=== PATIENT | female | born 1950 | race Caucasian/White ===

== ENCOUNTER → 2017-02-06 | Outpatient (CLI) | payer MEDICARE, OTHER ==
[~2017-02-06] MED LIST: ABIL15TA2 PO; AZIT500T2 PO; BENZ100 PO; BIOTCAP PO; CALC600T34 PO; DORZ1SOL2 EACH EYE; FLUT50SP EACH NARE; VITA20002 PO
[2017-02-06 08:18] LABS: AUTOMATED NEUTROPHIL # 1.8 TH/MM3 (1.8-7.7); BASOPHIL % 0.5 % (0.0-2.0); EOSINOPHIL # 0.1 TH/MM3 (0-0.4); EOSINOPHIL % 1.7 % (0.0-4.0); HEMATOCRIT 42.3 % (35.0-46.0); HEMO FLAGS DIFF FINAL; LYMPH % 31.9 % (9.0-44.0); MEAN CELL VOLUME 87.7 FL (80.0-100.0); MEAN CORPUSCULAR HEMOGLOBIN 29.9 PG (27.0-34.0); MEAN CORPUSCULAR HGB CONC 34.1 % (32.0-36.0); NEUT % 56.9 % (16.0-70.0); PLATELET COUNT 172 TH/MM3 (150-450); RED BLOOD COUNT 4.82 MIL/MM3 (4.00-5.30); RED CELL DISTRIBUTION WIDTH 14.2 % (11.6-17.2); WHITE BLOOD COUNT 3.2 TH/MM3 (4.0-11.0)
[2017-02-06 08:59] LABS: ALKALINE PHOSPHATASE 54 U/L (45-117); ALT (GPT) 28 U/L (10-53); ANION GAP 9 MEQ/L (5-15); BICARBONATE 26.7 MEQ/L (21.0-32.0); BLOOD UREA NITROGEN 9 MG/DL (7-18); CHLORIDE 101 MEQ/L (98-107); GLOMERULAR FILTRATION RATE 85 ML/MIN (>89); GLUCOSE,FASTING 87 MG/DL (74-99); SODIUM (NA) 137 MEQ/L (136-145); TOTAL BILIRUBIN ADULT 0.5 MG/DL (0.2-1.0)
[2017-02-06 09:00] LABS: AST (GOT) 24 U/L (15-37); POTASSIUM 3.7 MEQ/L (3.5-5.1)
== END ==
LOC: CLAB 07:56
PROVIDERS: ATTEND Psychiatry & Neurology Psychiatry
DX: F25.1 Schizoaffective disorder, depressive type (principal)
CPT/HCPCS: 36415; 80053; 85025

== ENCOUNTER → 2017-02-08 | Outpatient (CLI) | payer MEDICARE, OTHER ==
[2017-02-08 08:07] LABS: HDL CHOLESTEROL 54.5 MG/DL (40.0-60.0)
== END ==
LOC: CLAB 07:14
PROVIDERS: ATTEND Family Medicine
DX: E78.5 Hyperlipidemia, unspecified (principal)
CPT/HCPCS: 36415; 80061

== ENCOUNTER → 2017-06-14 | Outpatient (CLI) | payer MEDICARE, OTHER ==
[~2017-06-14] MED LIST changes: -AZIT500T2 PO; +BACT800T5 PO; -BENZ100 PO; -BIOTCAP PO; -CALC600T34 PO; +D32000TA; -DORZ1SOL2 EACH EYE; +DORZ2SOL7 EACH EYE; -FLUT50SP EACH NARE; -VITA20002 PO
[2017-06-14 07:47] LABS: AUTOMATED NEUTROPHIL # 2.6 TH/MM3 (1.8-7.7); BASOPHIL % 0.7 % (0.0-2.0); EOSINOPHIL % 1.2 % (0.0-4.0); HEMO FLAGS DIFF FINAL; LYMPH % 29.5 % (9.0-44.0); LYMPHOCYTE # 1.2 TH/MM3 (1.0-4.8); MEAN CELL VOLUME 89.3 FL (80.0-100.0); MEAN CORPUSCULAR HEMOGLOBIN 30.3 PG (27.0-34.0); MEAN CORPUSCULAR HGB CONC 33.9 % (32.0-36.0); MONO % 7.2 % (0.0-8.0); NEUT % 61.4 % (16.0-70.0); PLATELET COUNT 167 TH/MM3 (150-450); RED CELL DISTRIBUTION WIDTH 14.2 % (11.6-17.2); WHITE BLOOD COUNT 4.2 TH/MM3 (4.0-11.0)
[2017-06-14 08:07] LABS: ANION GAP 9 MEQ/L (5-15); AST (GOT) 15 U/L (15-37); BICARBONATE 25.5 MEQ/L (21.0-32.0); BLOOD UREA NITROGEN 8 MG/DL (7-18); CHLORIDE 100 MEQ/L (98-107); GLOMERULAR FILTRATION RATE 82 ML/MIN (>89); GLUCOSE,FASTING 89 MG/DL (74-99); POTASSIUM 3.4 MEQ/L (3.5-5.1); SODIUM (NA) 134 MEQ/L (136-145)
[2017-06-14 08:08] LABS: ALT (GPT) 29 U/L (10-53)
[2017-06-14 08:18] LABS: ALKALINE PHOSPHATASE 61 U/L (45-117); HDL CHOLESTEROL 55.5 MG/DL (40.0-60.0); LDL CHOLESTEROL 107 MG/DL (0-99); TOTAL BILIRUBIN ADULT 0.4 MG/DL (0.2-1.0)
== END ==
LOC: CLAB 07:18
PROVIDERS: ATTEND Family Medicine
DX: M85.80 Other specified disorders of bone density and structure, unspecified site (principal); C53.9 Malignant neoplasm of cervix uteri, unspecified; Z12.39 Encounter for other screening for malignant neoplasm of breast; F32.9 Major depressive disorder, single episode, unspecified; E78.5 Hyperlipidemia, unspecified; Z71.89 Other specified counseling; E55.9 Vitamin D deficiency, unspecified
CPT/HCPCS: 36415; 80053; 80061; 82306; 84443; 85025

== ENCOUNTER → 2017-08-08 | Outpatient (CLI) | payer MEDICARE, OTHER ==
[~2017-08-08] MED LIST changes: -ABIL15TA2 PO; +ABIL15TA3 PO; -D32000TA; +D32000TA PO; +LATA0.002 EACH EYE; +MULT-65 PO
[2017-08-08 15:11] LABS: AUTOMATED NEUTROPHIL # 2.7 TH/MM3 (1.8-7.7); BASOPHIL % 0.7 % (0.0-2.0); EOSINOPHIL # 0.1 TH/MM3 (0-0.4); EOSINOPHIL % 1.1 % (0.0-4.0); HEMATOCRIT 43.5 % (35.0-46.0); LYMPH % 35.1 % (9.0-44.0); LYMPHOCYTE # 1.7 TH/MM3 (1.0-4.8); MEAN CELL VOLUME 89.2 FL (80.0-100.0); MEAN CORPUSCULAR HEMOGLOBIN 30.6 PG (27.0-34.0); MEAN CORPUSCULAR HGB CONC 34.3 % (32.0-36.0); MONO % 7.5 % (0.0-8.0); NEUT % 55.6 % (16.0-70.0); PLATELET COUNT 179 TH/MM3 (150-450); RED BLOOD COUNT 4.87 MIL/MM3 (4.00-5.30); RED CELL DISTRIBUTION WIDTH 14.2 % (11.6-17.2); WHITE BLOOD COUNT 4.9 TH/MM3 (4.0-11.0)
[2017-08-08 15:14] LABS: HEMO FLAGS AUTO DIFF
[2017-08-08 15:24] LABS: APTT (PATIENT) 25.4 SEC (24.3-30.1); PROTHROMBIN TIME - PATIENT 10.6 SEC (9.8-11.6)
[2017-08-08 15:31] LABS: ALKALINE PHOSPHATASE 69 U/L (45-117); ALT (GPT) 38 U/L (10-53); GLOMERULAR FILTRATION RATE 68 ML/MIN (>89); TOTAL BILIRUBIN ADULT 0.4 MG/DL (0.2-1.0)
[2017-08-08 15:34] LABS: ANION GAP 8 MEQ/L (5-15); AST (GOT) 26 U/L (15-37); BICARBONATE 27.3 MEQ/L (21.0-32.0); BLOOD UREA NITROGEN 10 MG/DL (7-18); CHLORIDE 101 MEQ/L (98-107); GLUCOSE,FASTING 78 MG/DL (74-99); POTASSIUM 3.8 MEQ/L (3.5-5.1); SODIUM (NA) 136 MEQ/L (136-145)
[2017-08-08 15:43] LABS: PLATELET ESTIMATE SMEAR NORMAL (NORMAL); PLATELET MORPHOLOGY NORMAL (NORMAL); SCAN/DIFF AUTO DIFF CONFIRMED
--- NOTE | 2017-08-08 16:01 | RADRPT ---
EXAM DATE/TIME: 08/08/2017 15:21 [facility] COMPARISON: No previous studies available for comparison. INDICATIONS : Evaluate for pneumonia, pneumothorax, or communicable disease. Pre-op vaginal exploratory surgery. MEDICAL HISTORY : Right breast, tumor. Left breast, cyst. SURGICAL HISTORY : None. ENCOUNTER: Initial ACUITY: 1 day PAIN SCORE: 0/10 LOCATION: Bilateral chest FINDINGS: The Cqbbik-y-Eypo in satisfactory position. The lungs are clear. The heart is normal in size. There a re degenerative changes within the spine. CONCLUSION: 1. No acute cardiopulmonary findings. Chemo Weber MD on August 08, 2017 at 15:59 Board Certified Radiologist. This report was verified electronically.
--- NOTE | 2017-08-09 16:26 | EKG ---
Date Performed: 08/08/2017 Time Performed: 14:52:44 PTAGE: 66 years EKG: Sinus rhythm LOW QRS VOLTAGE IN PRECORDIAL LEADS BORDERLINE ECG Since PREVIOUS TRACING , no significant change noted PREVIOUS TRACIN02/22/2015 15.34 DOCTOR: Rigo Gutierrez Interpretating Date/Time 08/09/2017 16:24:02
== END ==
LOC: CPRE 14:30
PROVIDERS: ATTEND Obstetrics & Gynecology Gynecologic Oncology
DX: Z01.810 Encounter for preprocedural cardiovascular examination (principal); Z01.811 Encounter for preprocedural respiratory examination; Z01.812 Encounter for preprocedural laboratory examination; C53.9 Malignant neoplasm of cervix uteri, unspecified; R94.31 Abnormal electrocardiogram [ECG] [EKG]
CPT/HCPCS: 36415; 71020; 80053; 85025; 85610; 85730; 93005

== ENCOUNTER → 2017-08-20 | Day surgery (SDC) | payer MEDICARE, OTHER ==
[~2017-08-20] MED LIST changes: +ACETAMINOPHEN 1000 MG/100 ML 100 ML IV ONE; +APREPITANT 40 MG CAP ONE; -BACT800T5 PO; +CHLORHEXIDINE GLUCONATE 2 % 1 PACK (2 CLOTHS) TOPICAL PRN; +DEXAMETHASONE SOD PHOS 4 MG/ML VIAL IV ONE; +DO NOT ADM ANY ANTICOAGULANT DRUGS PRN; +KETOROLAC TROMETHAMINE 30 MG/ML (IVP) VIAL IV PUSH ONE; +KETOROLAC TROMETHAMINE 30 MG/ML (IVP) VIAL ONE; +LACTATED RINGER'S 1000 ML INJ 1,000 ML IV ONE; +LACTATED RINGER'S 1000 ML IV PRN; +LIDOCAINE 1%/EPINEPHrine 1:100,000 SOLN 20 ML VIAL ONE; +LIDOCAINE HCL 1% PF 5 ML SYRINGE OTHER ONE; +METOPROLOL TARTRATE 25 MG TAB PO PRN; +ONDANSETRON HCL 4 MG/2 ML VIAL IV PUSH ONE; +PROPOFOL 200 MG/20 ML AMP IV ONE; +SODIUM CHLORID 0.9% 500 ML IV PRN; +ePHEDrine/NS 25 MG/5 ML SYR IV ONE
[2017-08-20 15:45] VITALS: BP 147/71; PULSE 70; RESP 18; O2SAT 94
--- NOTE | 2017-08-21 10:14 | MP ---
cc: LUTHER PIERRE MD DATE OF SURGERY: 08/20/2017 PREOPERATIVE DIAGNOSIS 1. History of stage II cervical cancer. 2. Prior radiation x2 with previous chemotherapy to address recurrent disease. 3. Persistent and increased PET avid signal in the central pelvis and the region of the cervix. 4. Profound anatomical changes due to radiation. POSTOPERATIVE DIAGNOSIS 1. History of stage II cervical cancer. 2. Prior radiation x2 with previous chemotherapy to address recurrent disease. 3. Persistent and increased PET avid signal in the central pelvis and the region of the cervix. 4. Profound anatomical changes due to radiation. PROCEDURE 1. Examination under anesthesia. 2. Digital dilation of the vaginal canal. 3. Biopsies of the vaginal/cervical area with Cytobrush specimen for cytology. 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 ANESTHESIA Laryngeal mask anesthesia. ESTIMATED BLOOD LOSS 20 cc. HISTORY A 66-year-old female who has a complex treatment history as previously outlined including primary radiation and [place] chemotherapy for initial treatment of a locally advanced cervix cancer. She has been treated with chemotherapy along the course for recurrence and she had a central recurrence a number of years later and was felt to be a candidate for additional radiation and she was treated with additional radiation. She has been followed with clinical follow-up. Pap smears have been normal but the vaginal canal is almost completely obliterated such that reaching the cervix and obtaining a specimen from the cervix has not been possible due to the severe anatomical changes. She has been followed with periodic PET scans that have shown a persistent PET avid signal in the region of the cervix but it had been stable. She has had no symptoms, no bleeding, pain or other findings, but recent PET scan showed the signal to increase such that the intensity approximately doubled. She remains asymptomatic. She was counseled regarding options and is seen again in the pre-op holding area where she is counseled again, and she is in favor of an exam under anesthesia with attempts to try to obtain biopsies. FINDINGS On exam under anesthesia there is no appreciable inguinal lymph nodes. The external genitalia has no mass or lesion. The introitus is almost completely obliterated. The vaginal canal is perhaps only 1-2 cm in depth. I can emit a 5th digit on exam. Retractors and speculums are not possible for exam. On rectovaginal exam there is a fullness centrally that is smooth-walled. There is a thick shelf across the pelvis consistent with intact uterus and cervix and post radiation changes. I cannot feel any obvious separate mass or nodularity. The amount of tissue obtained and the site of the tissue obtained was severely limited by her profound anatomical changes. DETAILS OF PROCEDURE She was taken to the operating room, placed in dorsal lithotomy position. After laryngeal mask anesthesia was administered a timeout was undertaken. She was identified by sight recognition and hospital ID curtis, and the proposed procedure was reviewed and confirmed. She was prepped and draped in sterile fashion. Exam under anesthesia was performed with findings as described above. A lubricated fifth digit with sterile gloves was used to slowly try to manually dilate the vaginal canal which was limited in its success, perhaps an additional 1 cm depth of vaginal canal was able to be obtained. This caused some superficial bleeding at the apex of this. Biopsies were taken of the superficial mucosa and labeled as upper vagina/cervix, although the exact anatomical position could not be delineated. Next, the Cytobrush was introduced and passed as far up toward the apex as possible, past back and forth to obtain tissue for cytology. A small piece of Surgicel was placed in the vagina. There was good hemostasis. Preliminary and final counts were correct. She was returned to dorsal supine position and was pending reversal of anesthesia when I left the operating room to precede her to the post-anesthesia care unit. MD MARCOS Haque/EBEN /9:32 AM /9:47 AM
== END | disposition home or self-care (01) ==
LOC: HSDC 10:45
PROVIDERS: ATTEND Obstetrics & Gynecology Gynecologic Oncology
DX: C53.9 Malignant neoplasm of cervix uteri, unspecified (principal); Z92.21 Personal history of antineoplastic chemotherapy; Z92.3 Personal history of irradiation
CPT/HCPCS: 00940; 57100; 58120; 86850; 86900; 86901; 88305; J0131; J1100; J1885; J2405; J3010; J7120; J8501

== ENCOUNTER → 2017-11-13 | Outpatient (CLI) | payer MEDICARE, OTHER ==
[~2017-11-13] MED LIST changes: -ACETAMINOPHEN 1000 MG/100 ML 100 ML IV ONE; -APREPITANT 40 MG CAP ONE; -CHLORHEXIDINE GLUCONATE 2 % 1 PACK (2 CLOTHS) TOPICAL PRN; -DEXAMETHASONE SOD PHOS 4 MG/ML VIAL IV ONE; -DO NOT ADM ANY ANTICOAGULANT DRUGS PRN; -KETOROLAC TROMETHAMINE 30 MG/ML (IVP) VIAL IV PUSH ONE; -KETOROLAC TROMETHAMINE 30 MG/ML (IVP) VIAL ONE; -LACTATED RINGER'S 1000 ML INJ 1,000 ML IV ONE; -LACTATED RINGER'S 1000 ML IV PRN; -LIDOCAINE 1%/EPINEPHrine 1:100,000 SOLN 20 ML VIAL ONE; -LIDOCAINE HCL 1% PF 5 ML SYRINGE OTHER ONE; -METOPROLOL TARTRATE 25 MG TAB PO PRN; -ONDANSETRON HCL 4 MG/2 ML VIAL IV PUSH ONE; -PROPOFOL 200 MG/20 ML AMP IV ONE; -SODIUM CHLORID 0.9% 500 ML IV PRN; -ePHEDrine/NS 25 MG/5 ML SYR IV ONE
[2017-11-13 07:43] LABS: AUTOMATED NEUTROPHIL # 2.5 TH/MM3 (1.8-7.7); BASOPHIL % 0.4 % (0.0-2.0); EOSINOPHIL # 0.1 TH/MM3 (0-0.4); EOSINOPHIL % 1.3 % (0.0-4.0); HEMATOCRIT 42.6 % (35.0-46.0); HEMOGLOBIN 14.5 GM/DL (11.6-15.3); LYMPH % 29.2 % (9.0-44.0); LYMPHOCYTE # 1.2 TH/MM3 (1.0-4.8); MEAN CELL VOLUME 90.2 FL (80.0-100.0); MEAN CORPUSCULAR HEMOGLOBIN 30.6 PG (27.0-34.0); MEAN CORPUSCULAR HGB CONC 33.9 % (32.0-36.0); MEAN PLATELET VOLUME 7.4 FL (7.0-11.0); MONO % 7.6 % (0.0-8.0); MONOCYTE # 0.3 TH/MM3 (0-0.9); NEUT % 61.5 % (16.0-70.0); PLATELET COUNT 177 TH/MM3 (150-450); RED BLOOD COUNT 4.73 MIL/MM3 (4.00-5.30); RED CELL DISTRIBUTION WIDTH 13.7 % (11.6-17.2); WHITE BLOOD COUNT 4.1 TH/MM3 (4.0-11.0)
[2017-11-13 07:55] LABS: ALBUMIN 3.6 GM/DL (3.4-5.0); AST (GOT) 18 U/L (15-37); BICARBONATE 28.6 MEQ/L (21.0-32.0); BLOOD UREA NITROGEN 8 MG/DL (7-18); CALCIUM 8.9 MG/DL (8.5-10.1); CHLORIDE 100 MEQ/L (98-107); CREATININE 0.75 MG/DL (0.50-1.00); GLOMERULAR FILTRATION RATE 77 ML/MIN (>89); GLUCOSE,FASTING 83 MG/DL (74-99); SODIUM (NA) 137 MEQ/L (136-145)
[2017-11-13 07:56] LABS: ALT (GPT) 23 U/L (10-53)
[2017-11-13 07:59] LABS: ALKALINE PHOSPHATASE 63 U/L (45-117); TOTAL BILIRUBIN ADULT 0.4 MG/DL (0.2-1.0); TOTAL PROTEIN 7.1 GM/DL (6.4-8.2)
== END ==
LOC: CLAB 06:58
PROVIDERS: ATTEND Psychiatry & Neurology Psychiatry
DX: F25.1 Schizoaffective disorder, depressive type (principal)
CPT/HCPCS: 36415; 80053; 85025

== ENCOUNTER → 2017-12-06 | Outpatient (CLI) | payer MEDICARE, MEDICAID, OTHER ==
[2017-12-06 08:37] LABS: ALBUMIN 3.8 GM/DL (3.4-5.0); ALT (GPT) 28 U/L (10-53); AST (GOT) 17 U/L (15-37); BICARBONATE 27.6 MEQ/L (21.0-32.0); BLOOD UREA NITROGEN 10 MG/DL (7-18); CALCIUM 9.4 MG/DL (8.5-10.1); CHLORIDE 100 MEQ/L (98-107); CREATININE 0.74 MG/DL (0.50-1.00); GLOMERULAR FILTRATION RATE 78 ML/MIN (>89); GLUCOSE,FASTING 93 MG/DL (74-99); SODIUM (NA) 137 MEQ/L (136-145)
[2017-12-06 08:40] LABS: ALKALINE PHOSPHATASE 59 U/L (45-117); TOTAL BILIRUBIN ADULT 0.5 MG/DL (0.2-1.0); TOTAL PROTEIN 7.5 GM/DL (6.4-8.2)
== END ==
LOC: CLAB 07:42
PROVIDERS: ATTEND Family Medicine
DX: F31.9 Bipolar disorder, unspecified (principal)
CPT/HCPCS: 36415; 80053; 82172

== ENCOUNTER 2018-02-05 08:37 | Day surgery (SDC) | payer MEDICARE, MEDICAID ==
[~2018-02-05] VITALS: Ht 149.9 cm; Wt 70.0 kg
[2018-02-05 08:59] VITALS: BP 120/87; PULSE 82; RESP 20; TEMP 97.9; O2SAT 93
[2018-02-05] MEDS ORDERED: ZOFR8TAB PO (09:34)
[2018-02-05] MEDS ORDERED: DEXA4TAB PO (09:34)
[2018-02-05 10:45] VITALS: BP 147/74; PULSE 78; RESP 18; O2SAT 93
[2018-02-05] MEDS ORDERED: ALTEPLASE RECOMBINANT 2 MG VIAL INTRACATH PRN (10:45)
--- NOTE | 2018-02-05 10:45 | PD.RAD ---
Post Procedure Progress Note Pre Procedure Diagnosis: (1) Port-a-cath in place (2) Poorly functioning port-a-cath Post Procedure Diagnosis: (1) Port-a-cath in place (2) Poorly functioning port-a-cath Procedure Date: February 05, 2018 Supervising Radiologist: Chano Herr Proceduralist/Assist: RT Tito(Nacho), Other (Vargas) Plan of Activity Patient to Unit: [facility] Patient Condition: Good See PACS Report for procedural detail/treatment Central Venous Access Device Procedure 1 Right Internal Jugular Infusaport Evaluation single lumen Findings: Fibrin sheath at catheter tip. Will lock with Nelda-Chano Garcia MD February 05, 2018 10:45
[2018-02-05] MEDS ORDERED: ALTEPLASE RECOMBINANT 2 MG VIAL IV ONE (11:40)
--- NOTE | 2018-02-05 13:58 | RADRPT ---
EXAM DATE/TIME: 02/05/2018 10:35 [facility] COMPARISON: No previous studies available for comparison. INDICATIONS : Patient presents with port that flushes but has no blood return. MEDICAL HISTORY : Cervical Cancer Arthritis Bipolar SURGICAL HISTORY : Tonsillectomy D&C Cysto CORIN Breast Bx Partial Hysterectomy ENCOUNTER: Initial ACUITY: 1 day PAIN SCORE: 0/10 FLUORO TIME: .1 minutes IMAGE SERIES: 1 ACCESS: Right Port PROCEDURE : 1. Access of Sopduj-n-uyyx. 2. Port patency injection. The risks, benefits and alternatives to the procedure were explained and verbal and written consent w as obtained. The patient was placed supine. The port was prepped in sterile fashion. Full sterile t echnique was used, including cap, mask, sterile gloves and gown, and a large sterile sheet. Hand hyg iene and 2% chlorhexidine prep was utilized per protocol for cutaneous antisepsis with appropriate dr y time for site. The previously placed port was accessed and positive contrast was injected for evaluation. Injection demonstrates fibrin sheath at the catheter tip. The port is otherwise intact CONCLUSION: 1. Fibrin sheath at the catheter tip. Port is otherwise patent. 2. 2 mg of Activase will be infused into the port in an attempt to restore tip patency Chano Herr MD on February 05, 2018 at 13:53 Board Certified Radiologist. This report was verified electronically.
== END 2018-02-05 14:00 | disposition home or self-care (01) ==
LOC: HRIP 08:37 → HROP 08:37
PROVIDERS: ATTEND Obstetrics & Gynecology Gynecologic Oncology
DX: Z45.2 Encounter for adjustment and management of vascular access device (principal); C53.9 Malignant neoplasm of cervix uteri, unspecified
CPT/HCPCS: 36598; J2997

== ENCOUNTER 2018-02-06 07:41 | Day surgery (SDC) | payer MEDICARE, MEDICAID ==
[~2018-02-06 07:41] MED LIST changes: -D32000TA PO; +DEXA4TAB PO; -MULT-65 PO; +ZOFR8TAB PO
--- NOTE | 2018-03-12 16:14 | RADRPT ---
EXAM DATE/TIME: 02/06/2018 09:30 [facility] COMPARISON: [facility] ACCESS DEV PAT W/SVC, February 05, 2018, 10:35. INDICATIONS : Patient returns prior to chemo for port access and patency. MEDICAL HISTORY : Cervical Cancer Arthritis Bipolar SURGICAL HISTORY : Tonsillectomy D&C Cysto CORIN Breast Bx Partial Hysterectomy ENCOUNTER: [place] ACUITY: 1 day PAIN SCORE: 0/10 FLUORO TIME: 0.55 minutes IMAGE SERIES: 3 ACCESS: Right port PROCEDURE : 1. Access of Hzzrzc-h-kpbo. 2. Port patency injection. The risks, benefits and alternatives to the procedure were explained and verbal and written consent w as obtained. The patient was placed supine. The port was prepped in sterile fashion. Full sterile t echnique was used, including cap, mask, sterile gloves and gown, and a large sterile sheet. Hand hyg iene and 2% chlorhexidine prep was utilized per protocol for cutaneous antisepsis with appropriate dr y time for site. The previously placed port was accessed and evaluated fluoroscopically. Needle tip appears to be appr opriately positioned within the port reservoir. Due to the patient's reported contrast allergy, no co ntrast was injected, however. CONCLUSION: Fluoroscopically, the Sharma needle appears to be positioned in the port reservoir. Chano Herr MD on February 06, 2018 at 9:56 Board Certified Radiologist. This report was verified electronically.
== END 2018-02-06 11:30 | disposition home or self-care (01) ==
LOC: HROP 07:41
PROVIDERS: ATTEND Radiology Body Imaging
DX: Z45.2 Encounter for adjustment and management of vascular access device (principal); C53.9 Malignant neoplasm of cervix uteri, unspecified
CPT/HCPCS: 36598

== ENCOUNTER 2018-02-13 08:02 | Day surgery (SDC) | payer MEDICARE, MEDICAID ==
[~2018-02-13] VITALS: Ht 151.1 cm; Wt 70.0 kg
[2018-02-13 08:40] VITALS: BP 95/61; PULSE 86; RESP 18; TEMP 98.2; O2SAT 98
[2018-02-13] MEDS ORDERED: REGL10TA5 PO (08:40)
[2018-02-13] MEDS ORDERED: POTA-163 PO (08:40)
[2018-02-13] MEDS ORDERED: VANCOMYCIN 1000 MG/NS 250 ML - implanted port/tunneled catheter IV SCH ×2 (09:00)
[2018-02-13] MEDS ORDERED: SODIUM CHLORIDE 0.9% 1000 ML IV SCH (09:00)
[2018-02-13] MEDS ORDERED: MIDAZOLAM HCL 2 MG/2 ML VIAL ONE (10:33)
[2018-02-13] MEDS ORDERED: LIDOCAINE 1%/EPINEPHrine 1:100,000 SOLN 20 ML VIAL ONE (10:56)
[2018-02-13] MEDS ORDERED: SODIUM CHLORIDE 0.9% FLUSH 10 ML FLUSH IVF PRN (12:15)
--- NOTE | 2018-02-13 12:16 | PD.RAD ---
Post Procedure Progress Note Pre Procedure Diagnosis: (1) Poorly functioning port-a-cath (2) Carcinoma of uterine cervix, invasive (3) Carcinoma in situ of vagina Post Procedure Diagnosis: (1) Poorly functioning port-a-cath (2) Carcinoma in situ of vagina (3) Carcinoma of uterine cervix, invasive Procedure Date: February 13, 2018 Supervising Radiologist: Chano Herr Proceduralist/Assist: Kiran Bonilla, RT(Nacho), Other (Vargas) Anesthesia: Local, Analgesia, Conscious Sedation Plan of Activity Patient to Unit: [facility] Patient Condition: Good See PACS Report for procedural detail/treatment Central Venous Access Device Procedure 1 Right Internal Jugular Infusaport Placement, Removal (Previous non-functioning port) single lumen [place]: 8 Findings: Old port 7 years old. Tract densely calcified. Difficulty removing old catheter but cath was removed in 1 piece. Utilized same pocket for new device. High grade stnosis of IJ traversed with glide cath and Road runner wire then serially dilated to accommodate 8Fr peal-away sheath. Chano Herr MD February 13, 2018 12:16
[2018-02-13 12:24] VITALS: BP 118/69; PULSE 78; RESP 16; TEMP 97.7; O2SAT 97
[2018-02-13 12:30] VITALS: BP 119/64; PULSE 76; RESP 18; O2SAT 96
[2018-02-13 12:45] VITALS: BP 117/59; PULSE 78; RESP 16; O2SAT 100
[2018-02-13 13:15] VITALS: BP 97/52; PULSE 80; RESP 16; O2SAT 100
[2018-02-13 14:15] VITALS: BP 119/75; PULSE 85; RESP 16; O2SAT 92
--- NOTE | 2018-02-13 19:53 | RADRPT ---
EXAM DATE: 02/13/2018 12:40 PM EDT AGE/SEX: 67 years / Female INDICATIONS: Patient presents with cervical cancer in need of port placement for chemotherapy treatm ent. CLINICAL DATA: This is the patient's subsequent encounter. Patient reports that signs and symptoms h ave been present for 4 - 6 months and indicates a pain score of 0/10. MEDICAL/SURGICAL HISTORY: Carcinoma, cervical. Depression Arthritis BipolarS kin cancer Hyster ectomy. Radiation treatment Tonsillectomy Left S.O. COMPARISON: No prior [facility] exams available for comparison. FLUORO TIME (min): 4.02 IMAGE SERIES: 2 ACCESS SITE: SEDATION TIME (min): 45 MEDICATION(S): 4 mg midazolam (Versed) IV 200 mcg fentanyl (Sublimaze) IV Vancomycin within 2 hrs of procedure, Ancef (or alternative) within 1 hr of procedure. DEVICE(S): Right 8fr BioFlo port . . PROCEDURE : 1. Removal of the poorly functioning existing right IJ port 2. Placement of a new right IJ port. 3. Conscious sedation with continuous EKG and Oximetry monitoring. The risks, benefits and alternatives to the procedure were explained and verbal and written consent w as obtained. The site was prepped in sterile fashion. Full sterile technique was used, including ca p, mask, sterile gloves and gown and a large sterile sheet. Hand hygiene and 2% chlorhexidine prep w as utilized per protocol for cutaneous antisepsis with appropriate dry time for site. The skin and s ubcutaneous tissues were infiltrated with local anesthetic solution. Initially, the existing port pocket scar was excised with a 15 blade scalpel. The port pocket was the n bluntly dissected with a mosquito clamp. Subcutaneous tunnel surrounding the port was densely calci fied as the port has been in place for approximately 7 years. The port itself was used for IV access so, initially, the port was not completely dissected away from the pocket. Attention was then turned to the neck. With ultrasound guidance, a dermatotomy was made in on delayed scalpel over the internal jugular vein. The vein was accessed again with direct ultrasound guidance using a 21-gauge micropuncture needle. The 018 wire was advanced through the needle but could not be advanced past the confluence of the IJ and right subclavian. Over the wire, the 3-[address] Venogram was not performed as the patient reported a history of contrast allergy. However, a Roadr unner wire and hockey-stick catheter were eventually manipulated through the occluded portion of the internal jugular/brachiocephalic and into the central venous system. At this point, the existing port was deaccessed then bluntly dissected from the port pocket. Because of the dense calcification surrounding the port catheter, the catheter was quite difficult to remove. With slow steady pressure, the catheter eventually was removed en bloc. After appropriate local anesthetic, a new subcutaneous tunnel was developed from the existing port po cket to the new cervical dermatotomy with the metallic tunneler. The assembled port was then pulled t hrough the subcutaneous tunnel. The right IJ access was then serially dilated to accommodate the 8 Fr ench peel-away sheath. The port catheter, cut to the appropriate length was then advanced through the peel-away sheath into the central venous system. The new port was then accessed with a Sharma needle, aspirated, flushed and locked with an appropriate concentration and volume of heparin. Port pocket was then closed with interrupted 3-0 Vicryl sutures and Steri-Strips. Conscious sedation was performed with the prescribed dosages and duration as above in the presence of an independent trained radiology nurse to assist in the monitoring of the patient. EKG and oximetry remained stable throughout the procedure. CONCLUSION: 1. Successful removal and replacement of the poorly functioning right IJ port as detailed above. 2. Patient has a high-grade stenosis/occlusion in the central portion of the right IJ. This was succ essfully traversed with a glide catheter and roadrunner wire as detailed above to facilitate the new port placement. Electronically signed by: Chano Herr MD 02/13/2018 7:52 PM EDT
== END 2018-02-13 17:38 | disposition home or self-care (01) ==
LOC: HROP 08:02 → HRIP 08:03 → HROP 17:38
PROVIDERS: ATTEND Obstetrics & Gynecology Gynecologic Oncology
DX: T82.898A Other specified complication of vascular prosthetic devices, implants and grafts, initial encounter (principal); C53.9 Malignant neoplasm of cervix uteri, unspecified; D07.2 Carcinoma in situ of vagina
CPT/HCPCS: 36582; 76937; 77001; 99152; 99153; J1642; J2250; J3010; J3370; J7030; J7050; C1769; C1788; C1887